=== PATIENT | male | born 1975 | race Caucasian/White ===

== ENCOUNTER 2022-09-30 17:33 | Emergency (ER) | payer OTHER, SELFPAY ==
[2022-09-30] VITALS (19 sets, daily range): BP systolic 153–171; BP diastolic 106–113; PULSE 71–97; RESP 16; TEMP 37.7; O2SAT 94–97
--- NOTE | ~2022-09-30 | XR_ITS ---
EXAMINATION: XR chest 1V portable INDICATION: Cough and fever TECHNIQUE: Portable AP chest at 2234 hours COMPARISON: None available FINDINGS: There are minimal airspace opacities of the right lung base. No pleural effusion or pneumot horax. The cardiomediastinal silhouette is normal. IMPRESSION: 1. Right basilar airspace opacities, consistent with atelectasis versus pneumonia. Reviewed, dictated and finalized at location [facility]. A SINGER IMPRESSION: 1. Right basilar airspace opacities, consistent with atelectasis versus pneumon ia.
[2022-09-30 19:00] LABS: Influenza A QL RT-PCR Negative (Negative); Influenza B QL RT-PCR Negative (Negative); RSV RNA, RT-PCR Negative (Negative); SARS-CoV-2 RNA PCR Negative
[2022-09-30 21:26] LABS: Basophils Percent Auto 0.3 % (0.2-1.2); Eosinophils Percent Auto 0.2 % (0-4.4); Hematocrit 47.9 % (42.0-52.0); Hemoglobin 16.5 g/dL (14.0-18.0); Immature Granulocyte Absolute 0.02 K/mm3 (0.00-0.031); Immature Granulocyte Percent A 0.3 % (0-0.5); Immature Platelet Fraction Pct 3.4 % (0.9-11.2); Lymphocytes Absolute Auto 0.83 K/mm3 (0.9-3.2); Lymphocytes Percent Auto 13.6 % (18.3-44.2); Mean Corpuscular HGB Conc 34.4 g/dl (32-36); Mean Corpuscular Hemoglobin 31.3 pg (26-34); Mean Corpuscular Volume 90.9 fl (80-100); Mean Platelet Volume 9.6 fl (7.4-10.4); Monocytes Absolute Auto 0.3 K/mm3 (0.1-0.6); Monocytes Percent Auto 5.1 % (2.6-8.5); Neutrophils Absolute Auto 4.9 K/mm3 (1.3-6.7); Neutrophils Percent Auto 80.5 % (45.5-73.1); Platelet Count Result 139 k/mm3 (150-375); Red Blood Count 5.27 M/mm3 (4.6-6.20); Red Cell Distribution Width 12.7 % (11.5-14.5); White Blood Count 6.1 K/mm3 (4.5-10.0)
[2022-09-30 21:35] LABS: Lactic Acid Reflex 0.8 mmol/L (0.7-2.0)
[2022-09-30 21:36] LABS: Alanine Aminotransferase 17 U/L (6-50); Albumin Level 4.3 g/dL (3.5-5.1); Alkaline Phosphatase 42 U/L (38-126); Anion Gap 8 mmol/L (8-16); Aspartate Amino Transferase 21 U/L (17-59); Bilirubin,Total 1.1 mg/dL (0.2-1.3); Blood Urea Nitrogen 18 mg/dL (9-20); Calcium 8.6 mg/dL (8.4-10.2); Carbon Dioxide 25 mmol/L (22-30); Chloride 102 mmol/L (98-107); Estimated CRCL calculation 82 ml/min; Estimated Glomerular Filt Rate > 60; Glucose 127 mg/dL (65-110); Potassium 3.8 mmol/L (3.4-5.0); Sodium 135 mmol/L (137-145)
[2022-09-30] MEDS: SODIUM CHLORIDE 0.9% IV 1,000 ML 999 ML IV CONT (22:06)
[2022-09-30 22:27] LABS: Appearance Urine Clear (Clear); Bacteria Urine None Seen /hpf; Bilirubin Urine Negative (Negative); Blood Urine Negative (Negative); Color Urine Dark Yellow (Yellow); Glucose Urine UA Negative (Negative); Ketones Urine 1+ mg/dL (Negative); Leukocyte Esterase Ur Negative LEU/UL (Negative); Mucus Urine Present /lpf; Nitrate Urine Negative (Negative); Non Pathogenic Casts 0-2; Protein Urine 1+ mg/dL (Negative); Specific Grav Ur 1.021 (1.001-1.035); Squamous Epithelial Cell Urine None seen /hpf (Few); WBC Urine 0-5 /hpf
[2022-09-30 22:29] LABS: Add Urine Microscopic? YES
--- NOTE | 2022-09-30 22:46 | ED.GENADULT ---
HPI - General Adult General Chief complaint: Recheck/Abnormal Lab/Rx Stated complaint: hypertension, fever Time Seen by Provider: 09/30/22 20:48 History of Present Illness HPI narrative: Patient 47-year-old gentleman who presents emergency department with chief complaint of fever. Patient reports for the last several days he has had fever body aches and has had a headache. The patient denies nuchal rigidity reports that he was visiting [place] recently. Patient states that he just developed a rash upon arrival to the emergency department over his trunk. Related Data Allergies Allergy/AdvReac Type Severity Reaction Status Date / Time codeine Allergy Verified 09/05/12 11:26 Review of Systems Review of Systems: A 10 system review of systems was completed on the patient and is negative except for what is stated in the HPI. Nursing and ancillary documentation was reviewed. Exam Narrative: GENERAL: Well-appearing, well-nourished, and in no acute distress. HEAD: Normocephalic, atraumatic. EYES: PERRLA and EOMI. ENT: Nares clear, no rhinorrhea or epistaxis. Mucous membranes moist. NECK: Supple. CHEST: Clear to auscultation. No respiratory distress. HEART: Regular rate and rhythm. No murmur heard. Normal peripheral pulses. ABDOMEN: Soft, nontender, nondistended, normal active bowel sounds. EXTREMITIES: Normal range of motion. No edema. SKIN: Warm, dry, maculopapular rash present over the body that is raised.. NEURO: No focal deficits. Alert and oriented x3. PSYCH: Normal mood and affect. Course Course Emergency Course: Differential diagnosis includes pneumonia, viral syndrome COVID-19, measles. Given the patient's rash and fever and recent travel case was discussed with the infection control nurse who recommended the patient calling the health department tomorrow and speaking to [facility] at phone #[phone] Chest x-ray shows atelectasis versus pneumonia Vital Signs Vital signs: Vital Signs Temperature 37.7 C H 09/30/22 18:10 Pulse Rate 97 09/30/22 18:10 Respiratory Rate 16 09/30/22 18:10 Blood Pressure 171/108 H 09/30/22 18:10 Pulse Oximetry 96 09/30/22 18:10 Temperature 37.7 C H 09/30/22 18:10 Pulse Rate 88 09/30/22 22:17 Respiratory Rate 16 09/30/22 18:10 Blood Pressure 166/113 H 09/30/22 22:01 Pulse Oximetry 94 09/30/22 21:00 Medical Decision Making Vital Signs Vital Signs: Vital Signs Temperature 37.7 C H 09/30/22 18:10 Pulse Rate 97 09/30/22 18:10 Respiratory Rate 16 09/30/22 18:10 Blood Pressure 171/108 H 09/30/22 18:10 Pulse Oximetry 96 09/30/22 18:10 Temperature 37.7 C H 09/30/22 18:10 Pulse Rate 88 09/30/22 22:17 Respiratory Rate 16 09/30/22 18:10 Blood Pressure 166/113 H 09/30/22 22:01 Pulse Oximetry 94 09/30/22 21:00 Lab Data 09/30/22 21:18 09/30/22 21:18 Labs: Lab Results 09/30/22 09/30/22 09/30/22 Range/Units 18:15 21:18 21:18 WBC 6.1 (4.5-10.0) K/mm3 RBC 5.27 (4.6-6.20) M/mm3 Hgb 16.5 (14.0-18.0) g/dL Hct 47.9 (42.0-52.0) % MCV 90.9 (80-100) fl MCH 31.3 (26-34) pg MCHC 34.4 (32-36) g/dl RDW 12.7 (11.5-14.5) % Plt Count 139 L (150-375) k/mm3 MPV 9.6 (7.4-10.4) fl Immature Gran % (Auto) 0.3 (0-0.5) % Neut % (Auto) 80.5 H (45.5-73.1) % Lymph % (Auto) 13.6 L (18.3-44.2) % Bullock % (Auto) 5.1 (2.6-8.5) % Eos % (Auto) 0.2 (0-4.4) % Baso % (Auto) 0.3 (0.2-1.2) % Lymph # (Auto) 0.83 L (0.9-3.2) K/mm3 Bullock # (Auto) 0.3 (0.1-0.6) K/mm3 Eos # (Auto) 0.0 (0-0.3) K/mm3 Baso # (Auto) 0.0 (0.0-0.1) K/mm3 Abs Immat Gran (auto) 0.02 (0.00-0.031) K/mm3 Absolute Neuts (auto) 4.9 (1.3-6.7) K/mm3 Absolute Nucleated RBC 0.0 (0.0-0.012) K/mm3 Nucleated RBC % 0.0 (0.0-0.2) % % Immature Plt Fraction 3.4 (0.9-11.2) % Sodium 135 L (137-145) mmol/L Potassium 3.8 (3.4-5.0)
== END 2022-09-30 23:20 | disposition home or self-care (01) ==
PROVIDERS: Emergency Medicine; Emergency Provider Emergency Medicine; PCP Physician Assistant
DX: J18.9 Pneumonia, unspecified organism (principal); R50.9 Fever, unspecified; Z20.822 Contact with and (suspected) exposure to COVID-19
CPT/HCPCS: 36415; 71045; 80053; 81001; 83605; 85025; 85055; 87040; 87637; 96361; 96365; 99283; 99284; J0131; J7030